=== PATIENT | female | born 1965 | race Caucasian/White ===

== ENCOUNTER → 2016-08-23 | Outpatient (CLI) | payer OTHER ==
[~2016-08-23] MED LIST: ACTIGALL300 MG PO; BENTYL20 MG PO; EVOXAC30 MG PO; METOPROLOL SUCC50 MG PO; PHENERGAN25 MG PO; PRILOSEC PO; RESTASIS32 EA OP; VITAL-D RX TABL1 TAB; VITAMIN D50000 UNIT PO; ZOFRAN PO; [UNRECOGNIZED DRUG - OTHER]
--- NOTE | ~2016-08-23 | MY11 ---
[facility] A Service of [facility] RADIOLOGY TEXT RESULTS PATIENT: MARIA E LOEPZ LOCATION: [facility] : 61 UNIT #: [id number] AGE: [address]: Fide Sanchez MD SEX: F ORDER DR: [id number] [facility] [address] [place], [place] [address] [id number] O MR#: [id number] Acc #: [id number] NAME: MARIA E LOPEZ : 1965 SEX: F STUDY DATE/TIME: 08/23/2016 8:26 UNIT: [facility] ROOM: STUDY DESCRIPTION: MY Mammogram Screening Dig Charlie Attending Physician: Fide Sanchez M.D. Referring Physician: Fide Sanchez M.D. Ordering Physician: Fide Sanchez M.D. Primary Care Physician: Fide Sanchez M.D. MEDICAL IMAGING REPORT This report is preliminary unless electronic signature is present EXAM Digital screening mammogram, 08/23/2016 HISTORY 51-year-old woman positive family history, grandmother. Prior excisional left breast biopsy. Annual screening. COMPARISON Mammograms date to 04/04/2006 with most recent comparison 08/18/2015. FINDINGS Digital imaging of each breast was completed utilizing screening protocol. Skin markers were placed at the prior biopsy sites left breast. Review includes FDA-approved CAD device. Breast parenchyma is fatty replaced. I see no interval occurring mass or suspicious microcalcifications. Mild post surgical deformity of the left breast is noted. This appears stable. IMPRESSION Negative mammogram. Annual screening recommended. Patients over the age of 40 are entered into a reminder system with target due date for the next mammogram. A result letter will also be sent to the patient. BIRADS: 1 Negative Dictated by... Harinder Carmona M.D. THIS IS AN ELECTRONICALLY VERIFIED REPORT Harinder Carmona M.D. at 08/23/2016 12:12 PM ARACELI/[place] [facility]. [facility] A Service of [facility] RADIOLOGY TEXT RESULTS PATIENT: MARIA E LOPEZ LOCATION: [facility] #: [id number] : 61 UNIT #: [id number] AGE: [address]: Fide Sanchez MD SEX: F ORDER DR: TD: 08/23/2016 10:00 JOB #: [id number] MEDICAL IMAGING REPORT Page 1 of 1 COPY
== END | disposition home or self-care (01) ==
LOC: CWCC 08:13
DX: Z12.31 Encounter for screening mammogram for malignant neoplasm of breast (principal)
CPT/HCPCS: G0202